=== PATIENT | male | born 1990 | race Caucasian/White ===

== ENCOUNTER 2017-08-09 17:13 | Emergency (ER) | payer MEDICAID ==
[2017-08-09] MEDS: KETOROLAC 30 MG INJ IM (20:01)
== END 2017-08-09 23:10 | disposition home or self-care (01) ==
LOC: FTE 23:10
DX: S62.614A Displaced fracture of proximal phalanx of right ring finger, initial encounter for closed fracture (principal); S62.332A Displaced fracture of neck of third metacarpal bone, right hand, initial encounter for closed fracture; V28.4XXA Motorcycle driver injured in noncollision transport accident in traffic accident, initial encounter
CPT/HCPCS: 29125; 73110-RT; 73130-RT; 96372; 99284-25